=== PATIENT | female | born 1985 | race Caucasian/White ===

== ENCOUNTER 2016-10-19 12:00 | Inpatient (IN) | payer BC ==
[2016-10-19 14:22] VITALS: BMI 23.1
--- NOTE | 2016-10-19 16:41 | HP ---
CIWA Score - CIWA Score Nausea/Vomitin-Mild Nausea/No Vomiting (10/18/16 alcohol intoxicated, treated at [facility], received ativan, released 10/19/16, admitted to alcohol detox) Muscle Tremors: 4-Moderate,w/Arms Extend Anxiety: 4-Mod. Anxious/Guarded Agitation: 4-Moderately Restless Paroxysmal Sweats: 2 Orientation: 0-Oriented Tacttile Disturbances: 0-None Auditory Disturbances: 0-None Visual Disturbances: 0-None Headache: 2-Mild CIWA-Ar Total Score: 17 Admission ROS S - HPI Chief Complaint: withdrawal sx Allergies/Adverse Reactions: Allergies Allergy/AdvReac Type Severity Reaction Status Date / Time No Known Allergies Allergy Verified 10/19/16 14:49 History of Present Illness: 31 years old female with long history of alcohol dependence has exercise induced asthma and anxiety depression, longest sobriety 10 days is admitted to detox Exam Limitations: No Limitations - Ebola screening Have you traveled outside of the country in the last 21 days: No Have you had contact with anyone from an Ebola affected area: No Have you been sick,other than usual withdrawal symptoms: No Do you have a fever: No - Review of Systems Constitutional: Chills, Changes in sleep, Weight Stable EENT: reports: Other (eye glasses) Respiratory: reports: No Symptoms reported Cardiac: reports: No Symptoms Reported GI: reports: Indigestion, Abdominal cramping : reports: No Symptoms Reported Musculoskeletal: reports: No Symptoms Reported Integumentary: reports: No Symptoms Reported Neuro: reports: Tremors Endocrine: reports: No Symptoms Reported Hematology: reports: No Symptoms Reported Psychiatric: reports: Judgement Intact, Orientated x3, Anxious, Depressed Other Systems: Reviewed and Negative Patient History - Patient Medical History Hx Anemia: No Hx Asthma: Yes Hx Chronic Obstructive Pulmonary Disease (COPD): No Hx Cancer: No Hx Cardiac Disorders: No Hx Congestive Heart Failure: No Hx Hypertension: No Hx Hypercholesterolemia: No Hx Pacemaker: No HX Cerebrovascular Accident: No Hx Seizures: No Hx Dementia: No Hx Diabetes: No Hx Gastrointestinal Disorders: No Hx Liver Disease: No Hx Genitourinary Disorders: No Hx Sexually Transmitted Disorders: No Hx Renal Disease (ESRD): No Hx Thyroid Disease: No Hx Human Immunodeficiency Virus (HIV): No Hx Hepatitis C: No Hx Depression: Yes Hx Suicide Attempt: No Hx Bipolar Disorder: No Hx Schizophrenia: No - Patient Surgical History Past Surgical History: No Hx Neurologic Surgery: No Hx Cataract Extraction: No Hx Cardiac Surgery: No Hx Lung Surgery: No Hx Breast Surgery: No Hx Breast Biopsy: No Hx Abdominal Surgery: No Hx Appendectomy: No Hx Cholecystectomy: No Hx Genitourinary Surgery: No Hx Section: No Hx Orthopedic Surgery: No Hx Hysterectomy: No - PPD History Previous Implant?: Yes Documented Results: Negative w/o proof Implanted On Prior [facility] Admission?: No PPD to be Administered?: Yes - Reproductive History Patient is a Female of Child Bearing Age (11 -55 yrs old): Yes Last Menstrual Period: 09/28/16 Patient : No - Smoking Cessation Smoking history: Never smoked Have you smoked in the past 12 months: No Hx Chewing Tobacco Use: No Initiated information on smoking cessation: No - Substance & Tx. History Hx Alcohol Use: Yes Hx Substance Use: No Substance Use Type: Alcohol Hx Substance Use Treatment: Yes - Substances Abused Alcohol Route: Oral Frequency: Daily Amount used: 1 PINT VODKA Age of first use: 22 Date of Last Use: 10/18/16 Family Disease History - Family Disease History Family History: Denies Admission Physical Exam [facility] - Vital Signs Vital Signs: Vital Signs - 24 hr 10/19/16 14:20 Temperature 97.5 F L Pulse Rate 71 Respiratory 18 Rate Blood Pressure 124/75 - Physical General Appearance: Yes: Appropriately Dressed, Mild Distress, Thin, Tremorous, Irritable, Sweating, Anxious HEENTM: Yes: Hearing grossly Normal, Normal ENT Inspection, Normocephalic, Normal Voice Respiratory: Yes: Chest Non-Tender, Lungs Clear, Normal Breath Sounds, No Respiratory Distress, No Accessory Muscle Use Neck: Yes: Supple, Trachea in good position Breast: Yes: Breasts Symetrical Cardiology: Yes: Regular Rhythm, Regular Rate, S1, S2 Abdominal: Yes: Non Tender, Soft Genitourinary: Yes: Within Normal Limits Back: Yes: Normal Inspection Musculoskeletal: Yes: full range of Motion, Gait Steady Extremities: Yes: Normal Inspection (iv kamila left dorsal of hand from ER), Normal Range of Motion, Non-Tender, Tremors Neurological: Yes: Fully Oriented, Alert, Motor Strength 5/5, Depressed Affect Integumentary: Yes: Warm Lymphatic: Yes: Within Normal Limits - Diagnostic (1) Alcohol dependence with uncomplicated withdrawal Current Visit: Yes Status: Acute (2) Anxiety and depression Current Visit: Yes Status: Suspected (3) Exercise-induced asthma Current Visit: Yes Status: Acute Comment: ventolin Cleared for Admission [facility] - Detox or Rehab [facility] Level of Care: Medically Managed Detox Regimen/Protocol: Librium [facility] Breath Alcohol Content Breath Alcohol Content: 0 Urine Pregancy Test - Result Urine Test Results: Negative- NO Line Present Urine Drug Screen - Results Drug Screen Negative: No Urine Drug Screen Results: BZO-Benzodiazepines
[2016-10-19] MEDS ORDERED: MENTHOL/PHENOL 1 EACH UD MM PRN (16:44)
[2016-10-19] MEDS ORDERED: chlordiazePOXIDE HCL 25 MG CAPSULE PO PRN (16:44)
[2016-10-19] MEDS ORDERED: MAGNESIUM CITRATE 300 ML BOTTLE PO PRN (16:44)
[2016-10-19] MEDS ORDERED: MAGNESIUM HYDROX 2400MG/30ML ORAL SUSPENSION 30 ML CUP PO PRN (16:44)
[2016-10-19] MEDS ORDERED: ACETAMINOPHEN 325 MG TABLET (FP) PO PRN (16:44)
[2016-10-19] MEDS ORDERED: IBUPROFEN 400 MG TABLET (FP) PO PRN (16:44)
[2016-10-19] MEDS ORDERED: P-EPHED 60MG/TRIPROLIDI 2.5MG TABLET PO PRN (16:44)
[2016-10-19] MEDS ORDERED: guaiFENesin/D-METHORPHAN HB 10 ML UNIT-DOSE CUPS PO PRN (16:44)
[2016-10-19] MEDS ORDERED: hydrOXYzine PAMOATE 50 MG CAPSULE (FP) PO PRN (16:44)
[2016-10-19] MEDS ORDERED: LOPERAMIDE HCL 2 MG CAPSULE PO PRN (16:44)
[2016-10-19] MEDS ORDERED: MAG HYDROX/AL HYDROX/SIMETH 30 ML UNIT-DOSE CUP PO PRN (16:44)
[2016-10-19] MEDS ORDERED: ALBUTEROL SO4 6.7 GM HFA INHALER IH PRN (16:47)
[2016-10-19] MEDS: THIAMINE HCL 100 MG TABLET (FP) PO SCH (22:21)
[2016-10-19] MEDS: chlordiazePOXIDE HCL 25 MG CAPSULE PO SCH (22:21)
[2016-10-19] MEDS: diphenhydrAMINE HCL 50 MG CAPSULE PO PRN (22:21)
[2016-10-20] MEDS: chlordiazePOXIDE HCL 25 MG CAPSULE PO SCH ×4 (06:06→22:41)
--- NOTE | 2016-10-20 08:34 | CONSULT ---
[facility] Psychiatric Consult - Data Date of interview: 10/20/16 Admission source: [facility] Identifying data: This is 31 years old female with no psychiatric hospitalization history intoxicated with: Alcohol and Benzodiazepins Substance Abuse History: Urine Drug Screen Results: BZO-Benzodiazepines. - Smoking Cessation. Smoking history: Never smoked. Have you smoked in the past 12 months: No. Hx Chewing Tobacco Use: No. Initiated information on smoking cessation: No. - Substance & Tx. History. Hx Alcohol Use: Yes. Hx Substance Use: No. Substance Use Type: Alcohol. Hx Substance Use Treatment: Yes. - Substances Abused. Alcohol. Route: Oral. Frequency: Daily. Amount used: 1 PINT VODKA. Age of first use: 22. Date of Last Use: 10/18/16 Medical History: Denies, as per computer -Asthma history Psychiatric History: Patient reports history of anxiety and depression, reports taking prior to admission: Paxil 20mg poqd Physical/Sexual Abuse/Trauma History: Denies Additional Comment: Urine Drug Screen Results: BZO-Benzodiazepines Mental Status Exam - Mental Status Exam Alert and Oriented to: Person Cognitive Function: Fair Patient Appearance: Unkempt Mood: Sad Affect: Flat Patient Behavior: Sedated Speech Pattern: Delayed Voice Loudness: Mildly Soft/Quiet Thought Process: Goal Oriented Thought Disorder: Being Controlled Hallucinations: Denies Suicidal Ideation: Denies Homicidal Ideation: Denies Insight/Judgement: Fair Sleep: Difficulty falling asleep Appetite: Fair Muscle strength/Tone: Mild Hypotonicity Gait/Station: Shuffling Additional Comments: Paxil 20mg poqd Psychiatric Findings - Problem List ([place] 1, 2,3) (1) Alcohol dependence with uncomplicated withdrawal Current Visit: Yes Status: Acute (2) Benzodiazepine abuse Current Visit: Yes Status: Acute (3) Drug-induced mood disorder Current Visit: Yes Status: Acute (4) Alcohol-induced mood disorder Current Visit: Yes Status: Acute - Initial Treatment Plan Initial Treatment Plan: Paxil 20mg poqd
[2016-10-20 10:09] LABS: MCH 33.5 pg (25.7-33.7); MCHC 33.5 g/dl (32.0-36.0); MEAN PLT VOLUME 9.3 fl (7.5-11.1); PLATELET COUNT 207 K/MM3 (134-434); RDW 13.1 % (11.6-15.6); WHITE BLOOD COUNT 6.6 K/mm3 (4.0-10.0)
[2016-10-20 10:13] LABS: URINE APPEARANCE CLEAR; URINE BILIRUBIN NEGATIVE (NEGATIVE); URINE BLOOD NEGATIVE (NEGATIVE); URINE COLOR STRAW; URINE GLUCOSE (UA) NEGATIVE (NEGATIVE); URINE KETONE NEGATIVE (NEGATIVE); URINE NITRITE NEGATIVE (NEGATIVE); URINE PROTEIN NEGATIVE (NEGATIVE); URINE UROBILINOGEN NEGATIVE E.U./dl (0.2-1.0)
[2016-10-20 10:20] LABS: URINE LEUK ESTERASE TRACE (NEGATIVE)
[2016-10-20 10:23] LABS: URINE MUCUS RARE; URINE RBC <1 /hpf (0-3); URINE WBC 3 /hpf (3-5)
[2016-10-20] MEDS: PRENATAL VITAMINS W/ FOLIC ACID TABLET (FP) PO SCH (10:30)
[2016-10-20] MEDS: PARoxetine HCL 20 MG TABLET (FP) PO SCH (10:30)
[2016-10-20 10:41] LABS: ALBUMIN 4.2 g/dl (3.4-5.0); ALK PHOS 55 U/L (45-117); ANION GAP 13 (8-16); BILIRUBIN,TOTAL 1.6 mg/dL (0.2-1.0); CALCIUM 9.7 mg/dL (8.5-10.1); CO2 24 mmol/L (21-32); CREATININE 0.9 mg/dL (0.55-1.02); GLUCOSE,RANDOM 93 mg/dL (74-106); SGOT/AST 27 U/L (15-37); SGPT/ALT 26 U/L (12-78)
[2016-10-20] MEDS ORDERED: ARTIFICIAL TEARS (POLYVINYL ALCOHOL 1.4%) OPTH DROPS OU PRN (11:12)
--- NOTE | 2016-10-20 11:19 | PN ---
S CIWA - CIWA Score Nausea/Vomitin-Mild Nausea/No Vomiting Muscle Tremors: 3 Anxiety: 2 Agitation: 0-Normal Activity Paroxysmal Sweats: 3 Orientation: 0-Oriented Tacttile Disturbances: 2-Mild Itch/Numbness/Burn Auditory Disturbances: 1-Very Mild Visual Disturbances: 2-Mild Sensitivity Headache: 0-None Present CIWA-Ar Total Score: 14 [facility] Progress Note (SOAP) Subjective: Sweating, Tremors, Interrupted Sleep, Dry Eyes (Pt. reports recent Contact lens use and believes that that might be reason why eyes are dry. Pt. notes that this condition has happened before in past and that she has consulted Opthalmologist regarding this condition previously. Pt. denies any recent known contact with anyone with eye infection). Objective: No redness or signs of infection noted in bilateral eyes. Pt. NOT currently wearing Contact Lenses. 10/20/16 11:16 Vital Signs Temperature 98.1 F 10/20/16 09:40 Pulse Rate 81 10/20/16 09:40 Respiratory Rate 20 10/20/16 09:40 Blood Pressure 125/78 10/20/16 09:40 O2 Sat by Pulse Oximetry (%) Laboratory Last Values WBC 6.6 K/mm3 (4.0-10.0) 10/20/16 06:00 RBC 4.21 M/mm3 (3.60-5.2) 10/20/16 06:00 Hgb 14.1 GM/dL (10.7-15.3) 10/20/16 06:00 Hct 42.1 % (32.4-45.2) 10/20/16 06:00 MCV 100.0 fl (80-96) H 10/20/16 06:00 MCHC 33.5 g/dl (32.0-36.0) 10/20/16 06:00 RDW 13.1 % (11.6-15.6) 10/20/16 06:00 Plt Count 207 K/MM3 (134-434) 10/20/16 06:00 MPV 9.3 fl (7.5-11.1) 10/20/16 06:00 Sodium 137 mmol/L (136-145) 10/20/16 06:00 Potassium 4.0 mmol/L (3.5-5.1) 10/20/16 06:00 Chloride 100 mmol/L (98-107) 10/20/16 06:00 Carbon Dioxide 24 mmol/L (21-32) 10/20/16 06:00 Anion Gap 13 (8-16) 10/20/16 06:00 BUN 16 mg/dL (7-18) 10/20/16 06:00 Creatinine 0.9 mg/dL (0.55-1.02) 10/20/16 06:00 Creat Clearance w eGFR > 60 (>60) 10/20/16 06:00 Random Glucose 93 mg/dL (74-106) 10/20/16 06:00 Calcium 9.7 mg/dL (8.5-10.1) 10/20/16 06:00 Total Bilirubin 1.6 mg/dL (0.2-1.0) H 10/20/16 06:00 AST 27 U/L (15-37) 10/20/16 06:00 ALT 26 U/L (12-78) 10/20/16 06:00 Alkaline Phosphatase 55 U/L (45-117) 10/20/16 06:00 Total Protein 7.0 g/dl (6.4-8.2) 10/20/16 06:00 Albumin 4.2 g/dl (3.4-5.0) 10/20/16 06:00 Urine Color Straw 10/20/16 06:45 Urine Appearance Clear 10/20/16 06:45 Urine pH 6.0 (5.0-8.0) 10/20/16 06:45 Ur Specific [place] 1.008 (1.001-1.035) 10/20/16 06:45 Urine Protein Negative (NEGATIVE) 10/20/16 06:45 Urine Glucose (UA) Negative (NEGATIVE) 10/20/16 06:45 Urine Ketones Negative (NEGATIVE) 10/20/16 06:45 Urine Blood Negative (NEGATIVE) 10/20/16 06:45 Urine Nitrite Negative (NEGATIVE) 10/20/16 06:45 Urine Bilirubin Negative (NEGATIVE) 10/20/16 06:45 Urine Urobilinogen Negative E.U./dl (0.2-1.0) 10/20/16 06:45 Ur Leukocyte Esterase Trace (NEGATIVE) H 10/20/16 06:45 Urine RBC <1 /hpf (0-3) 10/20/16 06:45 Urine WBC 3 /hpf (3-5) 10/20/16 06:45 Ur Epithelial Cells Rare /hpf (FEW) 10/20/16 06:45 Urine Mucus Rare 10/20/16 06:45 RPR Titer Nonreactive (NONREACTIVE) 10/20/16 06:00 LABS NOTED. 10/20/16 11:22 Assessment: 10/20/16 11:19 WITHDRAWAL SYMPTOMS. Plan: CONTINUE DETOX. PRESCRIBE ARTIFICIAL TEARS PRN. ADVISED PT. TO FOLLOW-UP WITH OPTHALMOLOGIST AFTER DISCHARGE FOR DRY EYES.
--- NOTE | 2016-10-20 17:38 | EKG ---
Test Reason : Blood Pressure : / mmHG Vent. Rate : 068 BPM Atrial Rate : 068 BPM P-R Int : 116 ms QRS Dur : 082 ms QT Int : 414 ms P-R-T Axes : -28 045 040 degrees QTc Int : 440 ms NORMAL SINUS RHYTHM NORMAL ECG NO PREVIOUS ECGS AVAILABLE Confirmed by ELISE NICOLAS MD ([id number]) on 10/20/2016 5:37:56 PM Referred By: Stan Burrell Confirmed By:ELISE NICOLAS MD
[2016-10-20] MEDS: ALBUTEROL SO4 6.7 GM HFA INHALER IH PRN (22:41)
[2016-10-20] MEDS: THIAMINE HCL 100 MG TABLET (FP) PO SCH (22:42)
[2016-10-20] MEDS: diphenhydrAMINE HCL 50 MG CAPSULE PO PRN (22:43)
[2016-10-21] MEDS: chlordiazePOXIDE HCL 25 MG CAPSULE PO SCH ×3 (06:05→18:53)
[2016-10-21] MEDS: PARoxetine HCL 20 MG TABLET (FP) PO SCH (10:45)
[2016-10-21] MEDS: PRENATAL VITAMINS W/ FOLIC ACID TABLET (FP) PO SCH (10:45)
--- NOTE | 2016-10-21 10:47 | PN ---
[facility] CIWA - CIWA Score Nausea/Vomitin-Mild Nausea/No Vomiting Muscle Tremors: 3 Anxiety: 2 Agitation: 1-Slight > Activity Paroxysmal Sweats: No Perspiration Orientation: 0-Oriented Tacttile Disturbances: 0-None Auditory Disturbances: 0-None Visual Disturbances: 2-Mild Sensitivity Headache: 2-Mild CIWA-Ar Total Score: 11 [facility] Progress Note (SOAP) Objective: 10/21/16 10:47 Laboratory Tests 10/20/16 10/20/16 10/20/16 06:00 06:00 06:00 WBC 6.6 RBC 4.21 Hgb 14.1 Hct 42.1 MCV 100.0 H MCHC 33.5 RDW 13.1 Plt Count 207 MPV 9.3 Sodium 137 Potassium 4.0 Chloride 100 Carbon Dioxide 24 Anion Gap 13 BUN 16 Creatinine 0.9 Creat Clearance w eGFR > 60 Random Glucose 93 Calcium 9.7 Total Bilirubin 1.6 H AST 27 ALT 26 Alkaline Phosphatase 55 Total Protein 7.0 Albumin 4.2 Urine Color Urine Appearance Urine pH Ur Specific [place] Urine Protein Urine Glucose (UA) Urine Ketones Urine Blood Urine Nitrite Urine Bilirubin Urine Urobilinogen Ur Leukocyte Esterase Urine RBC Urine WBC Ur Epithelial Cells Urine Mucus RPR Titer Nonreactive 10/20/16 06:45 WBC RBC Hgb Hct MCV MCHC RDW Plt Count MPV Sodium Potassium Chloride Carbon Dioxide Anion Gap BUN Creatinine Creat Clearance w eGFR Random Glucose Calcium Total Bilirubin AST ALT Alkaline Phosphatase Total Protein Albumin Urine Color Straw Urine Appearance Clear Urine pH 6.0 Ur Specific [place] 1.008 Urine Protein Negative Urine Glucose (UA) Negative Urine Ketones Negative Urine Blood Negative Urine Nitrite Negative Urine Bilirubin Negative Urine Urobilinogen Negative Ur Leukocyte Esterase Trace H Urine RBC <1 Urine WBC 3 Ur Epithelial Cells Rare Urine Mucus Rare RPR Titer Vital Signs - 24 hr 10/20/16 10/20/16 10/20/16 15:26 20:29 23:38 Temperature 97.7 F 99.0 F 98.8 F Pulse Rate 72 66 72 Respiratory 16 18 18 Rate Blood Pressure 113/71 103/61 119/66 10/21/16 10/21/16 10/21/16 00:30 03:30 06:00 Temperature 97.9 F Pulse Rate 50 L Respiratory 18 18 18 Rate Blood Pressure 100/60 Assessment: 10/21/16 10:47 ONGOING WITHDRAWAL Plan: CONTINUE DETOX PROTOCOL
[2016-10-21] MEDS: THIAMINE HCL 100 MG TABLET (FP) PO SCH (22:46)
[2016-10-21] MEDS: chlordiazePOXIDE 5 MG CAPSULE PO SCH (22:48)
[2016-10-21] MEDS: diphenhydrAMINE HCL 50 MG CAPSULE PO PRN (22:48)
[2016-10-22] MEDS: chlordiazePOXIDE 5 MG CAPSULE PO SCH ×3 (06:18→20:56)
[2016-10-22] MEDS: PRENATAL VITAMINS W/ FOLIC ACID TABLET (FP) PO SCH (11:17)
[2016-10-22] MEDS: PARoxetine HCL 20 MG TABLET (FP) PO SCH (11:17)
--- NOTE | 2016-10-22 15:04 | PN ---
S Progress Note (SOAP) Subjective: ALERT,IRRITABLE,ANXIOUS,INTERRUPTED SLEEP, Objective: 10/22/16 15:03 Vital Signs Temperature 98.2 F 10/22/16 14:56 Pulse Rate 100 H 10/22/16 14:56 Respiratory Rate 18 10/22/16 14:56 Blood Pressure 112/69 10/22/16 14:56 O2 Sat by Pulse Oximetry (%) Assessment: 10/22/16 15:03 WITHDRAWAL SYMPTOM Plan: CONTINUE DETOX,DISCHARGE IN AM
[2016-10-22] MEDS: THIAMINE HCL 100 MG TABLET (FP) PO SCH (22:43)
[2016-10-22] MEDS: diphenhydrAMINE HCL 50 MG CAPSULE PO PRN (22:45)
[2016-10-22] MEDS: chlordiazePOXIDE HCL 10 MG CAPSULE PO SCH (22:45)
[2016-10-23] MEDS: chlordiazePOXIDE HCL 10 MG CAPSULE PO SCH (06:25)
--- NOTE | 2016-10-23 08:11 | PN ---
S Progress Note (SOAP) Subjective: alert,no complaint Objective: 10/23/16 08:08 Vital Signs Temperature 96.4 F L 10/22/16 22:26 Pulse Rate 66 10/22/16 22:26 Respiratory Rate 16 10/23/16 03:30 Blood Pressure 103/65 10/22/16 22:26 O2 Sat by Pulse Oximetry (%) Assessment: 10/23/16 08:09 detox completed,no withdrawal symptom Plan: discharge today,follow up with after care program as arrangement
[2016-10-23 08:14] VITALS: BP 100/65; PULSE 84; TEMP 79
--- NOTE | 2016-10-23 08:19 | DS ---
[facility] Detox Discharge Summary Admission Date: 10/19/16 Discharge Date: 10/23/16 - History Present History: Alcohol Dependence, Sedative Dependence Additional Comments: discharge today,follow up with after care program as arrangement Pertinent Past History: asthma - Physical Exam Results Vital Signs: Vital Signs Temperature 79 F L 10/23/16 08:13 Pulse Rate 84 10/23/16 08:13 Respiratory Rate 20 10/23/16 08:13 Blood Pressure 100/65 10/23/16 08:13 O2 Sat by Pulse Oximetry (%) - Treatment Hospital Course: Detox Protocol Followed, Detoxed Safely, Responded well, Discharged Condition Good Patient has Accepted a Rehab Referral to: declined - Medication Discharge Medications: Ambulatory Orders Paroxetine HCl [Paxil -] 20 mg PO DAILY 10/19/16 Paroxetine HCl [Paxil -] 20 mg PO DAILY #30 tablet 10/20/16 - AMA Did Patient Leave Against Medical Advice: No
[2016-10-23] MEDS: PRENATAL VITAMINS W/ FOLIC ACID TABLET (FP) PO SCH (10:06)
[2016-10-23] MEDS: PARoxetine HCL 20 MG TABLET (FP) PO SCH (10:06)
[2016-10-23] MEDS: ALBUTEROL SO4 6.7 GM HFA INHALER IH PRN (10:07)
== END 2016-10-23 10:00 | disposition home or self-care (01) | DRG 897 ==
LOC: YASAS 12:00 → Y6N 15:33
PROVIDERS: ADMIT Internal Medicine Addiction Medicine; ATTEND Internal Medicine Addiction Medicine
PROC: HZ2ZZZZ Detoxification Services for Substance Abuse Treatment (ICD-10-PCS; principal; 2016-10-23)
DX: F10.230 Alcohol dependence with withdrawal, uncomplicated (principal); F13.10 Sedative, hypnotic or anxiolytic abuse, uncomplicated; F19.24 Other psychoactive substance dependence with psychoactive substance-induced mood disorder; F10.24 Alcohol dependence with alcohol-induced mood disorder; F41.8 Other specified anxiety disorders; J45.990 Exercise induced bronchospasm
CPT/HCPCS: 36415; 80053; 81003; 81015; 85027; 86593; 93005; 93010